=== PATIENT | female | born 1950 | race Caucasian/White ===

== ENCOUNTER 2017-03-11 16:14 | Emergency (ER) | payer MEDICARE, OTHER ==
[~2017-03-11] VITALS: Ht 165.1 cm; Wt 81.7 kg
[~2017-03-11 16:14] MED LIST: ACIPHEX 20 MG T20 M1 PO; AZITHROMYCIN 2250 MG PO; BENADRYL25 MG PO; CARAFATE 1 GM TA1 G1 PO; CELEXA 20 MG TA20 MG PO; CELEXA40 MG PO; CLONAZEPAM 1 MG1 M1 PO; ENDOCET 10-3251 EACH PO; FISH OIL 1,001000 M2 PO; GLUCOPHAGE XR500 MG PO; LANTUS SC; LANTUS100 UNIT/M SUBQ; LEXAPRO 10 MG T10 MG PO; LIDODERM 5%1 PATC1 TOP; METFORMIN HCL500 MG PO; METOCLOPRAMIDE10 MG PO; NOVOLOG100 UNIT/1 SUBQ; OXECTA7.5 MG PO; PLAVIX 75 MG TA75 M1 PO; PREVACID15 MG PO
[2017-03-11] MEDS ORDERED: PLAVIX 75 MG TA75 M1 PO (16:33)
[2017-03-11] MEDS ORDERED: NORCO 5-325 TA1 EACH PO ×2 (18:07→18:57)
[2017-03-11] MEDS ORDERED: AFRIN15 ML NASAL (18:57)
[2017-03-11 19:18] VITALS: BP 144/98
[2017-10-12] MEDS ORDERED: NORCO 5-325 TA1 EACH PO (09:01)
== END 2017-03-11 19:22 | disposition home or self-care (01) ==
LOC: M.ERS 16:14
DX: S62.346A Nondisplaced fracture of base of fifth metacarpal bone, right hand, initial encounter for closed fracture (principal); S02.2XXA Fracture of nasal bones, initial encounter for closed fracture; F17.210 Nicotine dependence, cigarettes, uncomplicated; E78.5 Hyperlipidemia, unspecified; K21.9 Gastro-esophageal reflux disease without esophagitis; I25.2 Old myocardial infarction; F32.9 Major depressive disorder, single episode, unspecified; E11.9 Type 2 diabetes mellitus without complications; Z90.710 Acquired absence of both cervix and uterus; Z88.5 Allergy status to narcotic agent; Z88.8 Allergy status to other drugs, medicaments and biological substances; Z86.73 Personal history of transient ischemic attack (TIA), and cerebral infarction without residual deficits; Z91.013 Allergy to seafood; Z79.4 Long term (current) use of insulin; W18.31XA Fall on same level due to stepping on an object, initial encounter; Y93.89 Activity, other specified; Y92.89 Other specified places as the place of occurrence of the external cause; Y99.8 Other external cause status

== ENCOUNTER → 2017-07-04 | Outpatient (CLI) | payer MEDICARE, OTHER ==
[~2017-07-04] MED LIST changes: +AFRIN15 ML NASAL; +NORCO 5-325 TA1 EACH PO
== END ==
LOC: M.RAD 14:03
DX: M54.6 Pain in thoracic spine (principal); M54.5 Low back pain; Z87.891 Personal history of nicotine dependence

== ENCOUNTER → 2017-08-14 | Outpatient (CLI) | payer MEDICARE, OTHER ==
[2017-08-14 12:35] LABS: CREATININE 0.7 mg/dL (0.6-1.3)
== END ==
LOC: M.LAB 12:00 → M.CT 13:00 → M.LAB 13:00 → M.MRI 13:30
PROVIDERS: Internal Medicine
DX: M51.16 Intervertebral disc disorders with radiculopathy, lumbar region (principal); K76.0 Fatty (change of) liver, not elsewhere classified; M12.88 Other specific arthropathies, not elsewhere classified, other specified site; M48.061 Spinal stenosis, lumbar region without neurogenic claudication; E11.65 Type 2 diabetes mellitus with hyperglycemia; R16.0 Hepatomegaly, not elsewhere classified; G89.29 Other chronic pain; F32.5 Major depressive disorder, single episode, in full remission; F17.200 Nicotine dependence, unspecified, uncomplicated